=== PATIENT | male | born 1940 | race Caucasian/White ===

== ENCOUNTER → 2016-08-23 | Day surgery (SDC) | payer BC ==
[~2016-08-23] VITALS: Ht 185.4 cm; Wt 82.7 kg
[~2016-08-23] MED LIST: CLOB-65 TOP; CLOT1CRE3 TD; FLUO0.0566 TOP; GFNSR600 PO; IPRA1AER2 INH; LCTX PO; LIDOCAINE HCL 2% 2 ML VIAL (20MG/ML) ONE; LVQ750 PO; NCDT14 TD; NSNN50; PRED20TA2 PO; PROPOFOL IV EMULSION 10 MG/ML 20 ML VIAL IV ONE; TRIAPOW6 TD
--- NOTE | 2016-08-23 15:11 | Endo History and Physical ---
History & Physical Date of Service: Aug 23, 2016. Chief Complaint: Esophageal stenosis Referring Physician: Dr. Jackman History of Present Illness 75 yo CM who presents for EGD secondary to esophageal stenosis. Past Surgical History Hx Cardiac Surgery: No Hx Abdominal Surgery: No Hx Cancer Surgery: No Hx Thoracic Surgery: No Hx Urinary Tract Surgery: No Social History Smoking Status: Current Every Day Smoker Hx Alcohol Use: Yes (WHISKEY 2 TIMES/DAY) Allergies Coded Allergies: No Known Allergies (Verified , 03/31/14) Current Medications Reported Home Medications Medications Dose Route/Sig Max Daily Dose Days Date Category Nicotine 1 Patch Tdsy 14 Patch TD QAM 30 02/03/14 Rx Nasonex (Mometasone Furoate (Nasal)) 120 Sprays/17 Gm Aers 2 Sprays NA BID 02/03/14 Rx Levofloxacin 750 Mg Tab 750 Mg PO DAILY@11 02/03/14 Rx Floranex (Lactobacillus Acidophilus) 1 Tab Tab 1 Tab PO TIDM 10 02/03/14 Rx Combivent Respimat (Ipratropium-Albuterol) 120 Puffs/Inhaler Aero 1 Puffs INH Q6 02/03/14 Rx Mucinex Ext Rel (Guaifenesin) 600 Mg Tabcr 1,200 Mg PO Q12 5 02/03/14 Rx Temovate 0.05% (Clobetasol Propionate) Cr 1 Appln TOP UD 01/31/14 Reported Physical Exam General Appearance: WD/WN, no apparent distress Respiratory/Chest: Auscultation: breath sounds normal Cardiovascular: Heart Auscultation: RRR Abdomen: Bowel Sounds: normal Inspection & Palpation: soft, non-distended, no tenderness, guarding & rebound Assessment and Plan Assessment: 75 yo CM who presents for EGD secondary to esophageal stenosis. Plan: Proceed with EGD.
[2016-08-23 15:12] VITALS: Ht 185.4 cm; Wt 82.7 kg
--- NOTE | 2016-08-23 16:23 | Discharge Instructions ---
Endoscopy Patient Instructions Date / Procedure(s) Performed Aug 23, 2016. EGD Allergy Information Coded Allergies: No Known Allergies (Verified , 08/23/16) Discharge Date / Findings Aug 23, 2016. Schatzki's Ring s/p dilation with passage of endoscope Hiatal hernia Medication Instructions OK to resume all medications today as prescribed Reported Home Medications Medications Dose Route/Sig Max Daily Dose Days Date Category Triamcinolone (Triamcinolone (Bulk)) 1 Pow Pow 1 Appln TD BID 08/23/16 Reported Fluocinonide 0.05 % Chelsea 1 Appln TOP BID 30 08/23/16 Reported Clotrimazole (Clotrimazole Vaginal) 1 % Cre 1 Appln TD 08/23/16 Reported Temovate 0.05% (Clobetasol Propionate) Cr 1 Appln TOP UD 01/31/14 Reported Provider Instructions Activity Restrictions - No exercising or heavy lifting for 24 hours. - Do not drink alcohol the day of the procedure. - Do not drive a car or operate machinery until the day after the procedure. - Do not make any important decisions or sign important papers in 24 hours after the procedure. Following Day: - Return to full activity which may include returning to work/school. Diet Start your diet with liquids and light foods (jello, soup, juice, toast). Then eat your usual diet if not nauseated. Treatment For Common After Affects For mild abdominal pain, bloating, or excessive gas: - Rest - Eat lightly - Lie on right side Follow-Up Information Follow-up with DR. CARLEEN FAJARDO as scheduled Anesthesia Information What You Should Know You have had a procedure that required some medicine to reduce anxiety and discomfort. This treatment is called moderate sedation. After receiving the treatment, you may be sleepy, but you will be able to breathe on your own. The effects of the treatment may last for several hours. Follow these instructions along with Activity/Diet recommendations noted above: * Do NOT do anything where dizziness or clumsiness would be dangerous. * Rest quietly at home today, then you can be up and about tomorrow. * Have a responsible person stay with you the rest of today. * You may have had an I.V. today. If so, you may take the dressing off later today. Recommendations Call your doctor if: * Trouble breathing * Continuous vomiting for more than 24 hours * Temperature above 101 degrees * Severe abdominal pain or bloating * Pain not relieved by pain medicine ordered * There is increased drainage or redness from any incision * A large amount of rectal bleeding greater than 2-3 tablespoons. (If you had a polyp/s removed or have hemorrhoids, a small amount of blood - from the rectum is to be expected.) * You have any unanswered questions or concerns. IN THE EVENT OF A SERIOUS EMERGENCY, GO TO THE NEAREST EMERGENCY ROOM Your discharge instructions were prepared by provider Colin Pierce. Patient Instructions Signature Page Mitch Monreal Patient (or Guardian) Signature/Date: I have read and understand the instructions given to me by my caregivers. Caregiver/RN/Doctor Signature/Date: The above-named patient and/or guardian has received patient instructions on this date. + Original Patient Signature Page (only) stays with chart. Please make copy for patient.
--- NOTE | 2016-08-23 16:28 | GI REPORT ---
Procedure Date: 08/23/2016 4:03 PM Procedure: Upper GI endoscopy Indications: Dysphagia Medicines: Monitored Anesthesia Care Complications: No immediate complications. Estimated Blood Loss: Estimated blood loss: none. Procedure: Pre-Anesthesia Assessment: - Prior to the procedure, a History and Physical was performed, and patient medications and allergies were reviewed. The patient's tolerance of previous anesthesia was also reviewed. The risks and benefits of the procedure and the sedation options and risks were discussed with the patient. All questions were answered, and informed consent was obtained. Prior Anticoagulants: The patient has taken no previous anticoagulant or antiplatelet agents. ASA Grade Assessment: II - A patient with mild systemic disease. After reviewing the risks and benefits, the patient was deemed in satisfactory condition to undergo the procedure. After obtaining informed consent, the endoscope was passed under direct vision. Throughout the procedure, the patient's blood pressure, pulse, and oxygen saturations were monitored continuously. The scope was introduced through the mouth, and advanced to the second part of duodenum. The upper GI endoscopy was accomplished without difficulty. The patient tolerated the procedure well. Findings: A moderate Schatzki ring (acquired) was found at the gastroesophageal junction. A small hiatus hernia was present. The examined duodenum was normal. Impression: - Moderate Schatzki ring. - Small hiatus hernia. - Normal examined duodenum. - No specimens collected. Recommendation: - Resume previous diet. - Continue present medications. - Repeat the upper endoscopy in 3 weeks for retreatment. - Return to primary care physician as previously scheduled. Colin Pierce, 08/23/2016 4:27:38 PM This report has been signed electronically. Note Initiated On: 08/23/2016 4:03 PM
--- NOTE | 2016-08-23 16:44 | Anesthesiology Progress Note ---
Anesthesia Post Op Note Date & Time Aug 23, 2016 at 16:43 Vital Signs Pain Intensity: 0 Vital Signs Past 12 Hours Date Time Temp Pulse Resp B/P Pulse Ox O2 Delivery O2 Flow Rate FiO2 08/23/16 16:29 36.7 77 20 139/99 97 Room Air 08/23/16 15:40 36.7 70 20 129/79 97 Room Air Notes Mental Status: alert / awake / arousable, participated in evaluation Pt Amnestic to Procedure: Yes Nausea / Vomiting: adequately controlled Pain: adequately controlled Airway Patency, RR, SpO2: stable & adequate BP & HR: stable & adequate Hydration State: stable & adequate Anesthetic Complications: no major complications apparent Pt doing well.
[2016-08-23 16:59] VITALS: BP 138/76; PULSE 68; O2SAT 97
== END | disposition home or self-care (01) ==
LOC: C.GI 14:54
PROVIDERS: ATTEND Internal Medicine
DX: K22.2 Esophageal obstruction (principal); K44.9 Diaphragmatic hernia without obstruction or gangrene; F17.210 Nicotine dependence, cigarettes, uncomplicated

== ENCOUNTER → 2016-09-12 | Day surgery (SDC) | payer BC ==
[2016-09-07 08:50] VITALS: BMI 23.0
[~2016-09-12] VITALS: Ht 188 cm; Wt 81.8 kg
[~2016-09-12] MED LIST changes: -GFNSR600 PO; -IPRA1AER2 INH; -LCTX PO; -LIDOCAINE HCL 2% 2 ML VIAL (20MG/ML) ONE; -LVQ750 PO; -NCDT14 TD; -NSNN50; -PROPOFOL IV EMULSION 10 MG/ML 20 ML VIAL IV ONE; +SODIUM CHLORIDE 0.9% 500ML 500 ML IV ONE
[2016-09-12 13:29] VITALS: Ht 188 cm; Wt 81.8 kg
--- NOTE | 2016-09-12 13:37 | Endo History and Physical ---
History & Physical Date of Service: Sep 12, 2016. Chief Complaint: ESOPHAGEAL STENOSIS Referring Physician: DR. CARLEEN FAJARDO History of Present Illness 75 yo CM who presents for EGD secondary to esophageal stenosis. Past Surgical History Hx Cardiac Surgery: No Hx Internal Defibrillator: No Hx Pacemaker: No Hx Abdominal Surgery: No Hx of Implantable Prosthesis: No Hx Post-Op Nausea and Vomiting: No Hx Cancer Surgery: Yes (SKIN CANCER REMOVALS) Hx Thoracic Surgery: No Hx Orthopedic: No Hx Urinary Tract Surgery: Yes (LITHOTRIPSY) Family History None Social History Smoking Status: Former Smoker Hx Substance Use: No Hx Alcohol Use: Yes (1 DRINK/DAY) Allergies Coded Allergies: No Known Allergies (Verified , 09/07/16) Current Medications Reported Home Medications Medications Dose Route/Sig Max Daily Dose Days Date Category Triamcinolone (Triamcinolone (Bulk)) 1 Pow Pow 1 Appln TD BID 08/23/16 Reported Fluocinonide 0.05 % Chelsea 1 Appln TOP BID 30 08/23/16 Reported Clotrimazole (Clotrimazole Vaginal) 1 % Cre 1 Appln TD 08/23/16 Reported Temovate 0.05% (Clobetasol Propionate) Cr 1 Appln TOP UD 01/31/14 Reported Vital Signs Weight (Kilograms): 81.82 Height (Feet): 6 Height (Inches): 2 Physical Exam General Appearance: WD/WN, no apparent distress Respiratory/Chest: Auscultation: breath sounds normal Cardiovascular: Heart Auscultation: RRR Abdomen: Bowel Sounds: normal Inspection & Palpation: soft, non-distended, no tenderness, guarding & rebound Assessment and Plan Assessment: 75 yo CM who presents for EGD secondary to esophageal stenosis. Plan: Proceed with EGD.
[2016-09-12 13:40] VITALS: TEMP 36.6
--- NOTE | 2016-09-12 14:20 | Discharge Instructions ---
Endoscopy Patient Instructions Date / Procedure(s) Performed Sep 12, 2016. EGD Allergy Information Coded Allergies: No Known Allergies (Verified , 09/12/16) Discharge Date / Findings Sep 12, 2016. Esophageal stenosis s/p dilation Hiatal hernia Medication Instructions OK to resume all medications today as prescribed. Reported Home Medications Medications Dose Route/Sig Max Daily Dose Days Date Category Triamcinolone (Triamcinolone (Bulk)) 1 Pow Pow 1 Appln TD BID 08/23/16 Reported Fluocinonide 0.05 % Chelsea 1 Appln TOP BID 30 08/23/16 Reported Clotrimazole (Clotrimazole Vaginal) 1 % Cre 1 Appln TD 08/23/16 Reported Temovate 0.05% (Clobetasol Propionate) Cr 1 Appln TOP UD 01/31/14 Reported Provider Instructions Activity Restrictions - No exercising or heavy lifting for 24 hours. - Do not drink alcohol the day of the procedure. - Do not drive a car or operate machinery until the day after the procedure. - Do not make any important decisions or sign important papers in 24 hours after the procedure. Following Day: - Return to full activity which may include returning to work/school. Diet Start your diet with liquids and light foods (jello, soup, juice, toast). Then eat your usual diet if not nauseated. Treatment For Common After Affects For mild abdominal pain, bloating, or excessive gas: - Rest - Eat lightly - Lie on right side Follow-Up Information Follow-up with DR. CARLEEN FAJARDO as scheduled Anesthesia Information What You Should Know You have had a procedure that required some medicine to reduce anxiety and discomfort. This treatment is called moderate sedation. After receiving the treatment, you may be sleepy, but you will be able to breathe on your own. The effects of the treatment may last for several hours. Follow these instructions along with Activity/Diet recommendations noted above: * Do NOT do anything where dizziness or clumsiness would be dangerous. * Rest quietly at home today, then you can be up and about tomorrow. * Have a responsible person stay with you the rest of today. * You may have had an I.V. today. If so, you may take the dressing off later today. Recommendations Call your doctor if: * Trouble breathing * Continuous vomiting for more than 24 hours * Temperature above 101 degrees * Severe abdominal pain or bloating * Pain not relieved by pain medicine ordered * There is increased drainage or redness from any incision * A large amount of rectal bleeding greater than 2-3 tablespoons. (If you had a polyp/s removed or have hemorrhoids, a small amount of blood - from the rectum is to be expected.) * You have any unanswered questions or concerns. IN THE EVENT OF A SERIOUS EMERGENCY, GO TO THE NEAREST EMERGENCY ROOM Your discharge instructions were prepared by provider Colin Pierce. Patient Instructions Signature Page Mitch Monreal Patient (or Guardian) Signature/Date: I have read and understand the instructions given to me by my caregivers. Caregiver/RN/Doctor Signature/Date: The above-named patient and/or guardian has received patient instructions on this date. + Original Patient Signature Page (only) stays with chart. Please make copy for patient.
[2016-09-12 14:51] VITALS: BP 143/86; PULSE 69; O2SAT 97
--- NOTE | 2016-09-12 15:28 | Anesthesiology Progress Note ---
Anesthesia Post Op Note Date & Time Sep 12, 2016 at 15:28 Vital Signs Pain Intensity: 0 Vital Signs Past 12 Hours Date Time Temp Pulse Resp B/P Pulse Ox O2 Delivery O2 Flow Rate FiO2 09/12/16 14:51 69 18 143/86 97 Room Air 09/12/16 14:36 77 18 132/76 96 Room Air 09/12/16 14:21 76 18 105/62 96 Room Air 09/12/16 13:40 36.6 74 18 150/83 96 Room Air Notes Mental Status: alert / awake / arousable, participated in evaluation Pt Amnestic to Procedure: Yes Nausea / Vomiting: adequately controlled Pain: adequately controlled Airway Patency, RR, SpO2: stable & adequate BP & HR: stable & adequate Hydration State: stable & adequate Anesthetic Complications: no major complications apparent
--- NOTE | 2016-09-18 09:49 | GI REPORT ---
Procedure Date: 09/12/2016 1:59 PM Procedure: Upper GI endoscopy Indications: Dysphagia, For therapy of esophageal stenosis Medicines: Monitored Anesthesia Care Complications: No immediate complications. Estimated Blood Loss: Estimated blood loss: none. Procedure: Pre-Anesthesia Assessment: - Prior to the procedure, a History and Physical was performed, and patient medications and allergies were reviewed. The patient's tolerance of previous anesthesia was also reviewed. The risks and benefits of the procedure and the sedation options and risks were discussed with the patient. All questions were answered, and informed consent was obtained. Prior Anticoagulants: The patient has taken no previous anticoagulant or antiplatelet agents. ASA Grade Assessment: II - A patient with mild systemic disease. After reviewing the risks and benefits, the patient was deemed in satisfactory condition to undergo the procedure. After obtaining informed consent, the endoscope was passed under direct vision. Throughout the procedure, the patient's blood pressure, pulse, and oxygen saturations were monitored continuously. The On-site loaner was introduced through the mouth, and advanced to the second part of duodenum. The upper GI endoscopy was accomplished without difficulty. The patient tolerated the procedure well. Findings: One moderate benign-appearing, intrinsic stenosis was found. This measured 1 cm (inner diameter) x 1 cm (in length) and was traversed. A TTS dilator was passed through the scope. Dilation with a 12-13.5-15 mm balloon (to a maximum balloon size of 13.5 mm) dilator was performed. The dilation site was examined and showed moderate improvement in luminal narrowing. A medium-sized hiatus hernia was present. The examined duodenum was normal. Impression: - Benign-appearing esophageal stenosis. Dilated. - Medium-sized hiatus hernia. - Normal examined duodenum. - No specimens collected. Recommendation: - Resume previous diet. - Continue present medications. - Repeat the upper endoscopy for retreatment in 4 weeks. - Return to GI office as previously scheduled. Colin Pierce, DO 09/18/2016 9:48:35 AM This report has been signed electronically. Note Initiated On: 09/12/2016 1:59 PM I attest to the content of the Intraoperative Record and orders documented therein, exceptions below
== END | disposition home or self-care (01) ==
LOC: C.GI 12:58
PROVIDERS: ATTEND Internal Medicine
DX: K22.2 Esophageal obstruction (principal); K44.9 Diaphragmatic hernia without obstruction or gangrene; Z87.891 Personal history of nicotine dependence; Z98.890 Other specified postprocedural states

== ENCOUNTER → 2016-10-31 | Day surgery (SDC) | payer BC ==
[2016-10-18 14:32] VITALS: Ht 188 cm; Wt 81.8 kg
[~2016-10-31] VITALS: Ht 188 cm; Wt 81.8 kg
[~2016-10-31] MED LIST changes: +LIDOCAINE HCL 2% 2 ML VIAL (20MG/ML) ONE; +PROPOFOL IV EMULSION 10 MG/ML 20 ML VIAL IV ONE
--- NOTE | 2016-10-31 11:45 | Endo History and Physical ---
History & Physical Date of Service: Oct 31, 2016. Chief Complaint: esophageal stenosis Referring Physician: Dr. Orlando Jackman History of Present Illness 76 yo CM who presents for EGD secondary to esophageal stenosis. Past Surgical History Hx Cardiac Surgery: No Hx Internal Defibrillator: No Hx Pacemaker: No Hx Abdominal Surgery: No Hx of Implantable Prosthesis: No Hx Post-Op Nausea and Vomiting: No Hx Cancer Surgery: Yes (SKIN CANCER REMOVALS) Hx Thoracic Surgery: No Hx Orthopedic: No Hx Urinary Tract Surgery: Yes (LITHOTRIPSY) Family History None Social History Smoking Status: Former Smoker Hx Substance Use: No Hx Alcohol Use: Yes (1 DRINK/DAY) Allergies Coded Allergies: No Known Allergies (Verified , 10/18/16) Current Medications Reported Home Medications Medications Dose Route/Sig Max Daily Dose Days Date Category Prednisone Tab (Prednisone) 20 Mg Tab 20 Mg PO DAILY 10/31/16 Reported Fluocinonide 0.05 % Chelsea 1 Appln TOP BID 30 08/23/16 Reported Clotrimazole (Clotrimazole Vaginal) 1 % Cre 1 Appln TD 08/23/16 Reported Temovate 0.05% (Clobetasol Propionate) Cr 1 Appln TOP UD 01/31/14 Reported Vital Signs Weight (Kilograms): 81.82 Height (Feet): 6 Height (Inches): 2 Date Time Temp Pulse Resp B/P Pulse Ox O2 Delivery O2 Flow Rate FiO2 10/31/16 11:15 36.8 61 20 135/82 95 Room Air Physical Exam General Appearance: WD/WN, no apparent distress Respiratory/Chest: Auscultation: breath sounds normal Cardiovascular: Heart Auscultation: RRR Abdomen: Bowel Sounds: normal Inspection & Palpation: soft, non-distended, no tenderness, guarding & rebound Assessment and Plan Assessment: 76 yo CM who presents for EGD secondary to esophageal stenosis. Plan: Proceed with EGD.
--- NOTE | 2016-10-31 12:00 | Discharge Instructions ---
Endoscopy Patient Instructions Date / Procedure(s) Performed Oct 31, 2016. EGD Allergy Information Coded Allergies: No Known Allergies (Verified , 10/18/16) Discharge Date / Findings Oct 31, 2016. Esophageal stenosis s/p dilation to 16.5 mm Medication Instructions OK to resume all medications today as prescribed Reported Home Medications Medications Dose Route/Sig Max Daily Dose Days Date Category Prednisone Tab (Prednisone) 20 Mg Tab 20 Mg PO DAILY 10/31/16 Reported Fluocinonide 0.05 % Chelsea 1 Appln TOP BID 30 08/23/16 Reported Clotrimazole (Clotrimazole Vaginal) 1 % Cre 1 Appln TD 08/23/16 Reported Temovate 0.05% (Clobetasol Propionate) Cr 1 Appln TOP UD 01/31/14 Reported Provider Instructions Activity Restrictions - No exercising or heavy lifting for 24 hours. - Do not drink alcohol the day of the procedure. - Do not drive a car or operate machinery until the day after the procedure. - Do not make any important decisions or sign important papers in 24 hours after the procedure. Following Day: - Return to full activity which may include returning to work/school. Diet Start your diet with liquids and light foods (jello, soup, juice, toast). Then eat your usual diet if not nauseated. Treatment For Common After Affects For mild abdominal pain, bloating, or excessive gas: - Rest - Eat lightly - Lie on right side Follow-Up Information Follow-up with Dr. Orlando Jackman as scheduled Anesthesia Information What You Should Know You have had a procedure that required some medicine to reduce anxiety and discomfort. This treatment is called moderate sedation. After receiving the treatment, you may be sleepy, but you will be able to breathe on your own. The effects of the treatment may last for several hours. Follow these instructions along with Activity/Diet recommendations noted above: * Do NOT do anything where dizziness or clumsiness would be dangerous. * Rest quietly at home today, then you can be up and about tomorrow. * Have a responsible person stay with you the rest of today. * You may have had an I.V. today. If so, you may take the dressing off later today. Recommendations Call your doctor if: * Trouble breathing * Continuous vomiting for more than 24 hours * Temperature above 101 degrees * Severe abdominal pain or bloating * Pain not relieved by pain medicine ordered * There is increased drainage or redness from any incision * A large amount of rectal bleeding greater than 2-3 tablespoons. (If you had a polyp/s removed or have hemorrhoids, a small amount of blood - from the rectum is to be expected.) * You have any unanswered questions or concerns. IN THE EVENT OF A SERIOUS EMERGENCY, GO TO THE NEAREST EMERGENCY ROOM Your discharge instructions were prepared by provider Colin Pierce. Patient Instructions Signature Page Mitch Monreal Patient (or Guardian) Signature/Date: I have read and understand the instructions given to me by my caregivers. Caregiver/RN/Doctor Signature/Date: The above-named patient and/or guardian has received patient instructions on this date. + Original Patient Signature Page (only) stays with chart. Please make copy for patient.
--- NOTE | 2016-10-31 12:09 | GI REPORT ---
Procedure Date: 10/31/2016 11:20 AM Procedure: Upper GI endoscopy Indications: Follow-up of esophageal stenosis Medicines: Monitored Anesthesia Care Complications: No immediate complications. Estimated Blood Loss: Estimated blood loss: none. Procedure: Pre-Anesthesia Assessment: - Prior to the procedure, a History and Physical was performed, and patient medications and allergies were reviewed. The patient's tolerance of previous anesthesia was also reviewed. The risks and benefits of the procedure and the sedation options and risks were discussed with the patient. All questions were answered, and informed consent was obtained. Prior Anticoagulants: The patient has taken no previous anticoagulant or antiplatelet agents. ASA Grade Assessment: III - A patient with severe systemic disease. After reviewing the risks and benefits, the patient was deemed in satisfactory condition to undergo the procedure. After obtaining informed consent, the endoscope was passed under direct vision. Throughout the procedure, the patient's blood pressure, pulse, and oxygen saturations were monitored continuously. The scope was introduced through the mouth, and advanced to the second part of duodenum. The upper GI endoscopy was accomplished without difficulty. The patient tolerated the procedure well. Findings: One moderate benign-appearing, intrinsic stenosis was found. This measured 1.3 cm (inner diameter) x 1 cm (in length) and was traversed. A TTS dilator was passed through the scope. Dilation with a 15-16.5-18 mm balloon (to a maximum balloon size of 16.5 mm) dilator was performed. The dilation site was examined and showed moderate improvement in luminal narrowing. The stomach was normal. The examined duodenum was normal. Impression: - Benign-appearing esophageal stenosis. Dilated. - Normal stomach. - Normal examined duodenum. - No specimens collected. Recommendation: - Resume previous diet. - Continue present medications. - Repeat the upper endoscopy PRN for retreatment. - Return to primary care physician as previously scheduled. Colin Pierce DO 10/31/2016 12:09:12 PM This report has been signed electronically. Note Initiated On: 10/31/2016 11:20 AM I attest to the content of the Intraoperative Record and orders documented therein, exceptions below
--- NOTE | 2016-10-31 12:13 | Anesthesiology Progress Note ---
Anesthesia Post Op Note Date & Time Oct 31, 2016 at 12:13 Vital Signs Pain Intensity: 0 Vital Signs Past 12 Hours Date Time Temp Pulse Resp B/P Pulse Ox O2 Delivery O2 Flow Rate FiO2 10/31/16 12:00 63 16 122/78 93 Room Air 10/31/16 11:15 36.8 61 20 135/82 95 Room Air Notes Mental Status: alert / awake / arousable, participated in evaluation Pt Amnestic to Procedure: Yes Nausea / Vomiting: adequately controlled Pain: adequately controlled Airway Patency, RR, SpO2: stable & adequate BP & HR: stable & adequate Hydration State: stable & adequate Anesthetic Complications: no major complications apparent
[2016-10-31 12:30] VITALS: BP 145/97; PULSE 60; O2SAT 97
== END | disposition home or self-care (01) ==
LOC: C.GI 10:51
PROVIDERS: ATTEND Internal Medicine
DX: K22.2 Esophageal obstruction (principal); Z87.891 Personal history of nicotine dependence

== ENCOUNTER → 2017-03-18 | Outpatient (CLI) | payer BC ==
[~2017-03-18] MED LIST changes: -LIDOCAINE HCL 2% 2 ML VIAL (20MG/ML) ONE; -PROPOFOL IV EMULSION 10 MG/ML 20 ML VIAL IV ONE; -SODIUM CHLORIDE 0.9% 500ML 500 ML IV ONE; -TRIAPOW6 TD
[2017-03-18 10:11] LABS: BASO % 0.3 %; BASO ABS # 0.02 K/uL (0-0.2); COMPLETE YES; EOS % 5.4 %; HEMATOCRIT 49.2 % (42-52); IG% 0.2 %; LYMPH % 25.8 %; LYMPH ABS # 1.62 K/uL (1.2-3.4); MEAN CORPUSCULAR HEMOGLOBIN 30.3 pg (25-34); MEAN CORPUSCULAR HGB CONC 32.9 g/dl (32-36); MONO % 14.3 %; PLATELET COUNT 198 K/uL (130-400); RED BLOOD COUNT 5.35 M/uL (4.7-6.1); WHITE BLOOD COUNT 6.29 K/uL (4.8-10.8)
[2017-03-18 10:31] LABS: ESTIMATED AVERAGE GLUCOSE 120 mg/dl; HA1C FLAG Normal (Normal)
[2017-03-18 10:37] LABS: ALT/SGPT 18 U/L (12-78); AST/SGOT 14 U/L (15-37); BLOOD UREA NITROGEN 14 mg/dl (7-18); BUN/CREATININE RATIO 17.2 (10-20); CALCIUM 9.3 mg/dl (8.5-10.1); CARBON DIOXIDE 24 mmol/L (21-32); CHLORIDE 109 mmol/L (98-107); CREATININE 0.83 mg/dl (0.60-1.40); GLUCOSE 116 mg/dl (70-99); POTASSIUM 4.1 mmol/L (3.5-5.1); SODIUM 140 mmol/L (136-145)
[2017-03-18 10:40] LABS: CHOLESTEROL 219 mg/dl (0-200); CHOLESTEROL/HDL RATIO 5.2; HDL CHOLESTEROL 42 mg/dl; LDL CHOLESTEROL CALCULATED 137 mg/dl; TRIGLYCERIDES 201 mg/dl (0-150); VERY LOW DENSITY LIPOPROT CALC 40 mg/dl
[2017-03-19 14:52] LABS: ALBUMIN 4.1 G/DL (3.8-4.8); GAMMA GLOBULIN 0.9 G/DL (0.8-1.7)
--- NOTE | 2017-04-15 07:28 | CODING QUERY MEDICAL NECESSITY ---
CQSUPPORTING DIAGNOSIS NEEDED A supporting diagnosis is required for the test/procedure performed on this patient in order for us to be reimbursed by the patient's insurance. Please provide a supporting diagnosis for the following test/procedure listed below next to the test name along with your signature. *If there is no additional diagnosis for this patient that would support the following test/procedure please document that below next to the test/procedure. Test(s)/Procedure(s) that require a supporting diagnosis: DOS 03/18/17 GLYCATED HEMOGLOBIN TEST VITAMIN B12 TEST Provider Signature: Date: Thank you Germaine Sahni Health Information Management Once completed, please kindly fax back to [phone] For questions please call [phone]
== END | disposition home or self-care (01) ==
LOC: C.LAB1850 09:17
PROVIDERS: ATTEND Internal Medicine
DX: M21.379 Foot drop, unspecified foot (principal); E55.9 Vitamin D deficiency, unspecified; E78.5 Hyperlipidemia, unspecified; G62.9 Polyneuropathy, unspecified; E88.9 Metabolic disorder, unspecified

== ENCOUNTER 2017-05-20 15:19 | Inpatient (IN) | payer BC, OTHER ==
[~2017-05-20] VITALS: Ht 188 cm; Wt 77.1 kg
[~2017-05-20 15:19] MED LIST changes: -CHOL1CAP67 PO; -RIVA1TAB7 PO
[2017-05-20 16:23] LABS: BASO % 0.2 %; BASO ABS # 0.02 K/uL (0-0.2); COMPLETE YES; HEMATOCRIT 46.2 % (42-52); IG% 0.2 %; LYMPH % 18.9 %; LYMPH ABS # 2.26 K/uL (1.2-3.4); MEAN CELL VOLUME 90.2 fL (80-100); MEAN CORPUSCULAR HEMOGLOBIN 30.3 pg (25-34); MEAN CORPUSCULAR HGB CONC 33.5 g/dl (32-36); MEAN PLATELET VOLUME 11.1 fL (7.4-10.4); MONO % 13.6 %; NEUT % 66.1 %; PLATELET COUNT 253 K/uL (130-400); RED BLOOD COUNT 5.12 M/uL (4.7-6.1); WHITE BLOOD COUNT 11.95 K/uL (4.8-10.8)
[2017-05-20 16:43] LABS: PARTIAL THROMBOPLASTIN RATIO 1.1; PROTHROMBIN TIME (PATIENT) 10.5 SECONDS (9.0-12.0)
[2017-05-20 16:51] LABS: BUN/CREATININE RATIO 21.4 (10-20); CALCIUM 9.2 mg/dl (8.5-10.1); CREATININE 0.86 mg/dl (0.60-1.40); POTASSIUM 4.2 mmol/L (3.5-5.1)
[2017-05-20] MEDS ORDERED: CHOL1CAP67 PO (17:15)
[2017-05-20] MEDS ORDERED: OPTIRAY 320 IV PRN (17:30)
--- NOTE | 2017-05-20 17:41 | DIAGNOSTIC IMAGING REPORT ---
(CHEST FOR PE) ANGIO WITH CT DOSE: 389.85 mGy.cm HISTORY: 76 years-old Male presents with acute atypical chest pain and concern for pulmonary embolus. Extensive deep venous thrombosis of the left lower extremity seen on duplex study of same day. TECHNIQUE: Multiple CTA images of the chest were obtained after the intravenous administration of 80 mL Optiray 320. Coronal and sagittal MIPS were obtained from the axial data set and were submitted for review. A dose lowering technique was utilized adhering to the principles of ALARA. COMPARISON: Chest CT 01/31/2014. FINDINGS: CTA: Heart is normal in size. Minimal nondependent air is seen within the right ventricle and main pulmonary artery, likely iatrogenic from intravenous access. There is reflux of contrast into the IVC and hepatic veins, likely secondary to technique of contrast injection. Coronary arterial calcifications are present. The pulmonary arterial tree is well-opacified to the level of the distal segmental branches. The subsegmental branches are somewhat suboptimally visualized secondary to contrast bolus timing and respiratory motion. Extensive pulmonary emboli are seen, notably on the right involving the distal aspect of the main right pulmonary artery extending into the right upper, middle and lower lobar branches as well as into the segmental and subsegmental branches as seen on image 139 and 151 for example. Emboli are seen within segmental and subsegmental branches of the left lower lobe as seen on image 113 of series 4. No definite evidence of right heart strain. The thoracic aorta is not opacified with contrast. Moderate atrophy chronic plaquing of the thoracic aorta is seen without aneurysm identified. CT CHEST: No dominant thyroid nodule. No pathologic adenopathy identified. No pleural effusion or pneumothorax. Linear subsegmental consolidative opacities and groundglass densities of the lung bases, left greater the right suggest atelectasis. Pleural probable scarring with apparent postsurgical changes of the left lung apex are noted. Calcific granuloma the left upper lobe is present. Moderate bilateral bronchial wall thickening. No large pulmonary infarction or definite suspicious pulmonary nodules identified. Abdominal structures demonstrate no acute abnormality. Colonic diverticulosis noted involving the splenic flexure and transverse colon. Mild bilateral gynecomastia. The bones are mildly demineralized. Posterior disc aspect complex formations are noted at several levels. Multiple remote right-sided rib fractures. IMPRESSION: 1. Extensive bilateral pulmonary emboli, right greater than left involving the distal right main pulmonary artery as well as lobar, segmental and subsegmental branches as above. No definite evidence of right heart strain or pulmonary infarction identified. 2. Moderate bilateral bronchial wall thickening suggests bronchitis. 3. Thoracic aorta is not opacified, however no acute aortic pathology or aneurysm identified. The above report was generated using voice recognition software. It may contain grammatical, syntax or spelling errors. Electronically signed by: Emilio Buckner M.D. 05/20/2017 5:40 PM Dictated Date/Time: 05/20/2017 5:27 PM
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
[2017-05-20] MEDS ORDERED: POLYETHYLENE (MIRALAX) 17 GM PACK PO PRN (18:45)
[2017-05-20] MEDS ORDERED: ACETAMINOPHEN 325 MG TAB PO PRN (18:45)
[2017-05-20] MEDS ORDERED: ONDANSETRON INJ 2 MG/ML 2 ML VIAL IV PRN (18:45)
[2017-05-20] MEDS ORDERED: HEPARIN SOD 5000 UNIT/0.5 ML CARP ONE (19:40)
[2017-05-20] MEDS ORDERED: HEPARIN 25000 UNIT/500 ML D5W ONE (19:40)
[2017-05-20 20:40] VITALS: BP 149/76; PULSE 65; TEMP 36.7; O2SAT 95; Ht 188 cm; Wt 77.1 kg
[2017-05-20] MEDS ORDERED: HEPARIN 25,000 UNIT/500ML D5W 500 ML IV PRN (22:00)
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
[2017-05-20 23:53] VITALS: BP 134/78; PULSE 54; TEMP 36.6; O2SAT 96
[2017-05-21 01:57] LABS: PARTIAL THROMBOPLASTIN RATIO 3.5
[2017-05-21 03:37] VITALS: BP 81/51; PULSE 88; TEMP 37; O2SAT 100
[2017-05-21 07:27] LABS: BASO % 0.4 %; BASO ABS # 0.03 K/uL (0-0.2); COMPLETE YES; EOS % 2.4 %; HEMATOCRIT 44.7 % (42-52); IG% 0.2 %; LYMPH % 26.8 %; LYMPH ABS # 2.25 K/uL (1.2-3.4); MEAN CELL VOLUME 89.2 fL (80-100); MEAN CORPUSCULAR HEMOGLOBIN 29.1 pg (25-34); MEAN CORPUSCULAR HGB CONC 32.7 g/dl (32-36); MEAN PLATELET VOLUME 11.1 fL (7.4-10.4); MONO % 10.7 %; NEUT % 59.5 %; PLATELET COUNT 229 K/uL (130-400); RED BLOOD COUNT 5.01 M/uL (4.7-6.1); WHITE BLOOD COUNT 8.38 K/uL (4.8-10.8)
[2017-05-21 07:36] LABS: PROTHROMBIN TIME (PATIENT) 10.7 SECONDS (9.0-12.0)
[2017-05-21 07:41] VITALS: BP 123/80; PULSE 59; TEMP 36.6; O2SAT 95
[2017-05-21 07:44] LABS: PARTIAL THROMBOPLASTIN RATIO 2.2
[2017-05-21 07:52] LABS: CREATININE 0.89 mg/dl (0.60-1.40)
[2017-05-21 07:53] LABS: CALCIUM 8.4 mg/dl (8.5-10.1); POTASSIUM 4.2 mmol/L (3.5-5.1)
[2017-05-21 07:55] LABS: CHOLESTEROL/HDL RATIO 3.9
[2017-05-21 10:51] VITALS: BP 132/74; PULSE 67; TEMP 36.4; O2SAT 93
[2017-05-21] MEDS ORDERED: RIVA1TAB7 PO (11:23)
--- NOTE | 2017-05-21 11:25 | Discharge Instructions ---
Discharge Instructions Date of Service May 21, 2017. Admission Reason for Admission: Acute Pe And Dvt VTE Date & Time Date of VTE Diagnosis: May 20, 2017 Time of VTE Diagnosis: 14:17 Discharge Goals Goal(s): Decrease discomfort, Improve disease control Activity Recommendations Activity Limitations: resume your previous activity . Instructions / Follow-Up Instructions / Follow-Up Follow up with family physician within one week Medication Instructions: Your condition is typically treated with an anticoagulant. Anticoagulants will thin your blood to help prevent new clots. * You should take her medication exactly as directed. * Never skip a dose. * Never take a double dose. If you miss a dose, take it as soon as you remember. Call your Primary Care doctor if you experience any of the following: * Swelling or Pain in your leg * Sudden, continuous pain deep in a muscle * Pain that worsens when you are active or when you stand still for a long time * Chest Pain * Sudden Shortness of Breath * Rapid or pounding heart beat * Fainting * Dizziness * Cough with blood or bloody sputum * Sweating more than normal * Bruises * Heavy or uncontrolled bleeding * Blood in your urine, stool or vomit * Black or tarry stools Caring for Your Self at Home: * Avoid sitting, standing or lying down for long periods without moving your legs and feet * When traveling by car, stop to get out and move around at least once every 3 hours * On long airplane, train or bus rides, get up and move around when possible * If you can't get up, wiggle your toes and tighten your calves to keep your blood moving Follow Up: It is important for you to keep your follow up appointments with your medical provider. Current Hospital Diet Patient's current hospital diet: Regular Diet Discharge Diet Recommended Diet: Regular Diet Pending Studies Studies pending at discharge: no Laboratory Results Hemoglobin A1c Test 03/18/17 09:21 Range/Units Estimated Average Glucose 120 mg/dl Hemoglobin A1c 5.8 H 4.5-5.6 % Lipid Panel Test 05/21/17 07:15 Range/Units Triglycerides Level 172 H 0-150 mg/dl Cholesterol Level 185 0-200 mg/dl HDL Cholesterol 47 mg/dl Cholesterol/HDL Ratio 3.9 LDL Cholesterol, Calculated 104 mg/dl Medical Emergencies . Who to Call and When: Medical Emergencies: If at any time you feel your situation is an emergency, please call 911 immediately. . Non-Emergent Contact Non-Emergency issues call your: Primary Care Provider . . "Provider Documentation" section prepared by Darshana Bullock. . VTE Core Measure Inpt VTE Proph given/why not?: Other Anticoagulation, SCD's
[2017-05-21] MEDS ORDERED: RIVAROXABAN TAB 15 MG TAB PO ONE (11:45)
[2017-05-21 12:44] VITALS: BP 132/74; PULSE 67; TEMP 36.4; O2SAT 93
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
== END 2017-05-21 13:12 | disposition home or self-care (01) | DRG 299 ==
LOC: C.EDB 15:23 → C.2T 18:42 → ENRESERV 19:23
PROVIDERS: ADMIT Internal Medicine; ATTEND Family Medicine
DX: I82.4Z2 Acute embolism and thrombosis of unspecified deep veins of left distal lower extremity (principal); I26.99 Other pulmonary embolism without acute cor pulmonale; E55.9 Vitamin D deficiency, unspecified; Z86.718 Personal history of other venous thrombosis and embolism; F17.290 Nicotine dependence, other tobacco product, uncomplicated; Z86.711 Personal history of pulmonary embolism

== ENCOUNTER → 2017-05-20 | Outpatient (CLI) | payer BC ==
[~2017-05-20] MED LIST changes: +CHOL1CAP67 PO; +RIVA1TAB7 PO
--- NOTE | 2017-05-20 15:08 | DIAGNOSTIC IMAGING REPORT ---
LEFT LOWER EXTREMITY VENOUS DOPPLER CLINICAL HISTORY: Left leg pain and swelling. COMPARISON STUDY: No previous studies for comparison. TECHNIQUE: Sonography of the deep venous system of the left lower extremity was performed. Compression and augmentation were evaluated. FINDINGS: There is extensive deep venous thrombus within the left lower extremity, including thrombus within the left superficial femoral, popliteal, posterior tibial, anterior tibial and peroneal veins. Thrombus within the popliteal and posterior tibial veins is occlusive. This thrombus is likely acute. IMPRESSION: Extensive deep venous thrombus within the left lower extremity which is likely acute. Electronically signed by: hCaran Morris M.D. 05/20/2017 3:07 PM Dictated Date/Time: 05/20/2017 3:05 PM
== END | disposition home or self-care (01) ==
LOC: C.ULTR 14:24
PROVIDERS: ATTEND Internal Medicine
DX: M79.89 Other specified soft tissue disorders (principal); I82.402 Acute embolism and thrombosis of unspecified deep veins of left lower extremity

== ENCOUNTER → 2017-12-18 | Outpatient (CLI) | payer BC ==
[~2017-12-18] MED LIST changes: +CHOL1CAP67 PO; -CLOB-65 TOP; -CLOT1CRE3 TD; -FLUO0.0566 TOP; -PRED20TA2 PO; +RIVA1TAB7 PO
--- NOTE | 2017-12-18 10:47 | DIAGNOSTIC IMAGING REPORT ---
ULTRASOUND LEFT LOWER EXTREMITY VENOUS CLINICAL HISTORY: Follow-up deep venous thrombosis. COMPARISON STUDY: Left lower extremity venous ultrasound dated 05/20/2017. TECHNIQUE: Real-time, grayscale, and color Doppler sonography of the deep veins of the left lower extremity was performed from the inguinal crease to the calf. Compression and augmentation were utilized. FINDINGS: There is nonocclusive deep venous thrombosis identified within the distal superficial femoral vein, the popliteal vein, and in the calf within the anterior tibial and peroneal veins. The common femoral vein as well as the proximal to mid portions of the superficial femoral vein are patent and normally compressible. The greater saphenous vein and the profunda femoris vein at the junction with the common femoral vein are clear. IMPRESSION: There is age indeterminant nonocclusive deep venous thrombosis seen within the distal superficial femoral vein and extending into the calf. The burden of thrombus has decreased from the 05/20/2017 examination. Electronically signed by: Berlin Flores M.D. 12/18/2017 10:46 AM Dictated Date/Time: 12/18/2017 10:44 AM
== END | disposition home or self-care (01) ==
LOC: C.ULTR 09:40
PROVIDERS: ATTEND Internal Medicine
DX: I82.409 Acute embolism and thrombosis of unspecified deep veins of unspecified lower extremity (principal)

== ENCOUNTER 2022-05-04 23:33 | Inpatient (IN) ==
[2022-05-04] MEDS ORDERED: ALBUT/IPRATROP 3MG/0.5MG NEB 3 ML VIAL INH STA (23:47)
--- NOTE | 2022-05-04 23:50 | Emergency Department Note ---
Impression & Plan Hypoxia ADMIT ED Provider Note HPI: The patient is an 81-year-old male with history of DVT, on Xarelto, presents the emergency department with a chief complaint of cough and shortness of breath that has been worsening throughout the day today. On arrival here to the ED the patient is hypoxic at 89% on room air, he was placed on nasal cannula oxygen with good improvement, on my initial assessment he does display some moderate increased work of breathing, he is coarse bilateral breath sounds with some moderate expiratory wheezing bilaterally. Patient denies any chest pain. He is alert on arrival, he is afebrile on arrival. ROS: -Pulmonary: Cough, shortness of breath *10 point review systems was conducted and is otherwise negative unless stated above *Outpatient medications and allergy history reviewed PE: General: Alert HEENT: Normocephalic, trachea midline Eyes: Extraocular eye movement is intact, no scleral erythema Pulmonary: Coarse bilateral breath sounds with moderate expiratory wheezing bilaterally Cardio: Regular rate and rhythm GI: Abdomen is soft, nontender : No suprapubic tenderness MSK: No evidence of trauma or malformation of the extremities, no edema Skin: No evidence of rash Neuro: Alert, no focal deficits 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 He states his symptoms have been acutely worsening throughout the day today. He does mention that his son recently tested positive for COVID-19. On arrival the patient did have coarse bilateral breath sounds, he was slightly hypoxic, he was placed on nasal cannula oxygen with good improvement. Patient was given a DuoNeb breathing treatment with good improvement in his symptoms. Chest x-ray does not show any obvious evidence of pneumonia, lab work does not show any leukocytosis, no critical electrolyte abnormalities are noted, troponin is negative. Patient denies any chest pain. Patient is stable on nasal cannula oxygen on my reassessment. COVID-19 test is pending at this time but I suspect that his symptoms are viral in nature, he is hypoxic and required supplemental oxygen therefore we will plan for admission for observation tonight. Patient is in agreement to the above plan and he was admitted in stable condition for further care. * CRITICAL CARE TIME: (35) minutes -Stabilization of hypoxia requiring supplemental oxygen to improve oxygen saturations less than 90% on room air, time spent at the bedside, interpretation of diagnostic studies, arrangement of admission Diagnosis: 1. Hypoxia, acute 2. Shortness of breath 3. 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 Hand Family History Mother Pancreatic cancer Other No family history of adverse response to anesthesia Denies family history of Ovarian cancer Prostate cancer Myocardial infarction Breast cancer Colorectal cancer Social History Smoking Status: Current some day smoker Tobacco Type: Cigars packs per day: 2; Cigarettes Per Day: 1-2 SMALL CIGARS PER DAY (advised on policy); Second Hand Exposure: No; Hx Alcohol Use: Yes Alcohol type: hard liquor Alcohol Intake Frequency: 4 or More x per/Week Hx Substance Use: No Preferred Language: Slovak Communication Ability: Effective Visual Impairment: No Limitations Hearing Ability: Normal Credit Clerk Required: No Beliefs That Will Affect Care: None marital status: Current Living Situation: Spouse current occupational status: retired Feels Safe at Home: Yes Childhood Exposure to Second-Hand Smoke: No Dental Care, Regularly: Yes Physical Activity Frequency: Daily Seatbelt Use: always Sunscreen Use: No Assistive Devices: Denture - Lower and Glasses Allergies Allergies Allergy/AdvReac Type Severity Reaction Status Date / Time No Known Allergies Allergy Verified 04/26/22 12:42 Home Meds Home Medications Medication Instructions Recorded Confirmed rivaroxaban 20 mg tablet (Xarelto) 20 mg PO QAM 03/28/22 04/26/22 Previous Rx's Medication Instructions Recorded albuterol sulfate 90 mcg/actuation 1 inh inhalation QID PRN shortness 05/24/21 aerosol inhaler (Ventolin HFA) of breath or wheezing #18 grams pantoprazole 40 mg tablet,delayed 40 mg PO BID #60 tabs 03/29/22 release Results & Data (ED) Vital Signs Vital Signs - 24 hr 05/04/22 23:36 05/04/22 23:45 05/04/22 23:45 Temperature 36.9 C Temperature Source Temporal Artery Scan Pulse Rate 103 H Pulse Rate [Finger] Respiratory Rate 28 H Respiratory Effort / Characteristics Spontaneous Short of Breath SOB on Exertion Respiratory Depth Deep Shallow Respiratory Pattern Regular Blood Pressure 162/85 H Blood Pressure [Right Arm] Blood Pressure Mean 110 Blood Pressure Mean [Right Arm] Pulse Oximetry 89 L 94 Oxygen Delivery Method Room Air Nasal Cannula Oxygen Flow Rate 3 Sepsis Recent Fever Within 48 Hours No Sepsis New/Unexplained Change in Mental Status No Sepsis Action Taken by Nursing No Action Required 05/04/22 23:54 05/05/22 01:30 Temperature Temperature Source Pulse Rate Pulse Rate [Finger] 85 Respiratory Rate 20 Respiratory Effort / Characteristics Respiratory Depth Respiratory Pattern Blood Pressure Blood Pressure [Right Arm] 154/91 H Blood Pressure Mean Blood Pressure Mean [Right Arm] 112 Pulse Oximetry 94 95 Oxygen Delivery Method Nasal Cannula Nasal Cannula Oxygen Flow Rate 2 2 Sepsis Recent Fever Within 48 Hours Sepsis New/Unexplained Change in Mental Status Sepsis Action Taken by Nursing Laboratory Data Result diagrams: 05/05/22 00:00 05/05/22 00:00 Lab Results 05/05/22 05/05/22 05/05/22 Range/Units 00:00 00:00 00:00 WBC 10.51 (4.8-10.8) K/ul RBC 5.10 (4.63-6.08) M/uL Hgb 15.6 (14.0-18.0) g/dl Hct 45.6 (40.1-51.0) % MCV 89.4 (80.0-100.0) fL MCH 30.6 (25.0-34.0) pg MCHC 34.2 (32.0-36.0) g/dL RDW Std Deviation 45.5 (36.4-46.3) fL RDW Coeff of Yuridia 14.0 (11.5-14.5) % Plt Count 199 (130-400) K/uL MPV 11.4 (9.4-12.4) fL Immature Gran % (Auto) 0.3 % Neut % (Auto) 54.9 % Lymph % (Auto) 23.7 % [place] % (Auto) 12.5 % Eos % (Auto) 8.1 % Baso % (Auto) 0.5 % Neut # (Auto) 5.78 (1.4-6.5) K/uL Lymph # (Auto) 2.49 (1.2-3.4) K/uL [place] # (Auto) 1.31 H (0.24-0.82) K/uL Eos # (Auto) 0.85 H (0-0.50) K/uL Baso # (Auto) 0.05 (0-0.2) K/uL Immature Gran # (Auto) 0.03 H (0.00-0.02) K/uL PT (9.0-12.0) Seconds INR (0.9-1.1) APTT (21.0-31.0) Seconds PTT Ratio VBG pH (7.36-7.41) VBG pCO2 (38-50) mmHg VBG pO2 mmHg VBG HCO3 mmol/L VBG O2 Saturation % VBG Base Excess mEq/L Sodium 136 (136-145) mmol/L Potassium 4.0 (3.5-5.1) mmol/L Chloride 101 (98-107) mmol/L Carbon Dioxide 25 (21-32) mmol/L Anion Gap 10 (3-11) BUN 18 (6-23) mg/dl Creatinine 0.89 (0.6-1.4) mg/dl Est Cr Clr Drug Dosing 69.6 ml/min Est GFR ( Amer) 91.6 ml/min Est GFR (Non-Af Amer) 79.1 ml/min BUN/Creatinine Ratio 20.2 H (10-20) Glucose 127 H (70-99(Fasting)) mg/dl Calcium 9.4 (8.5-10.1) mg/dl Total Bilirubin 0.5 (0.2-1.0) mg/dl AST 27 (13-39) U/L ALT 18 (7-52) U/L Alkaline Phosphatase 70 (34-104) U/L Troponin I High Sens 12.0 (0-20) pg/ml B-Natriuretic Peptide 14 (0-100) pg/ml Total Protein 8.0 (6.0-8.3) gm/dl Albumin 4.5 (3.4-5.0) gm/dl Globulin 3.5 (2.5-4.0) gm/dl Albumin/Globulin Ratio 1.3 (0.9-2) 05/05/22 05/05/22 Range/Units 00:00 00:00 WBC (4.8-10.8) K/ul RBC (4.63-6.08) M/uL Hgb (14.0-18.0) g/dl Hct (40.1-51.0) % MCV (80.0-100.0) fL MCH (25.0-34.0) pg MCHC (32.0-36.0) g/dL RDW Std Deviation (36.4-46.3) fL RDW Coeff of Yuridia (11.5-14.5) % Plt Count (130-400) K/uL MPV (9.4-12.4) fL Immature Gran % (Auto) % Neut % (Auto) % Lymph % (Auto) % [place] % (Auto) % Eos % (Auto) % Baso % (Auto) % Neut # (Auto) (1.4-6.5) K/uL Lymph # (Auto) (1.2-3.4) K/uL [place] # (Auto) (0.24-0.82) K/uL Eos # (Auto) (0-0.50) K/uL Baso # (Auto) (0-0.2) K/uL Immature Gran # (Auto) (0.00-0.02) K/uL PT 11.7 (9.0-12.0) Seconds INR 1.1 (0.9-1.1) APTT 32.9 H (21.0-31.0) Seconds PTT Ratio 1.2 VBG pH 7.41 (7.36-7.41) VBG pCO2 45 (38-50) mmHg VBG pO2 46 mmHg VBG HCO3 29 mmol/L VBG O2 Saturation 77.5 % VBG Base Excess 3.2 mEq/L Sodium (136-145) mmol/L Potassium (3.5-5.1) mmol/L Chloride (98-107) mmol/L Carbon Dioxide (21-32) mmol/L Anion Gap (3-11) BUN (6-23) mg/dl Creatinine (0.6-1.4) mg/dl Est Cr Clr Drug Dosing ml/min Est GFR ( Amer) ml/min Est GFR (Non-Af Amer) ml/min BUN/Creatinine Ratio (10-20) Glucose (70-99(Fasting)) mg/dl Calcium (8.5-10.1) mg/dl Total Bilirubin (0.2-1.0) mg/dl AST (13-39) U/L ALT (7-52) U/L Alkaline Phosphatase (34-104) U/L Troponin I High Sens (0-20) pg/ml B-Natriuretic Peptide (0-100) pg/ml Total Protein (6.0-8.3) gm/dl Albumin (3.4-5.0) gm/dl Globulin (2.5-4.0) gm/dl Albumin/Globulin Ratio (0.9-2) Administered Medications Discontinued Medications Albuterol (Albut/Ipratrop 3mg/0.5mg Neb 3 Ml Vial) 3 ml INH NOW STA Stop: 05/04/22 23:48 Last Admin: 05/05/22 00:19 Dose: 3 ml Documented By: YANN Dexamethasone 8 mg/ Syringe 2 mls @ 1 mls/min IV ONE ONE Stop: 05/05/22 00:50 Last Admin: 05/05/22 01:20 Dose: 1 mls/min Documented By: YANN Imaging Data Radiologist's Impression: Chest X-Ray 05/04/22 23:47 XR chest 1V portable HISTORY: 81 years-old Male Dyspnea acute shortness of breath COMPARISON: Chest radiograph 05/24/2021 TECHNIQUE: AP view of the chest FINDINGS: Cardiomediastinal and hilar silhouettes are within normal limits. No pneumotho rax, pleural effusion, airspace consolidation or overt pulmonary edema. Degenerative changes of the shoulders and spine. IMPRESSION: No acute process. ACT 112: Negative or not required by law. The above report was generated using voice recognition software. It may contain grammatical, syntax or spelling errors. Electronically signed by: Ino Buckner M.D. 05/05/2022 12:09 AM Discharge Plan Visit Data Chief Complaint: Shortness of Breath/Dyspnea Stated Complaint: HARD TO BREATHE ED Provider: Tha Sawant Discharge Problem: Hypoxia Patient Disposition: Admitted As Inpatient Forms Stand Alone Forms: [facility] Prescriptions Prescriptions: No Action albuterol sulfate [Ventolin HFA] 90 mcg/actuation HFA aerosol inhaler 1 inh inhalation QID PRN (Reason: shortness of breath or wheezing) Qty: 18 1RF Xarelto 20 mg tablet 20 mg PO QAM Rx Instructions: must administer with a meal/food pantoprazole 40 mg tablet,delayed release (DR/EC) 40 mg PO BID Qty: 60 5RF Referrals Referrals: Orlando Jackman MD [Primary Care Provider] -
--- NOTE | 2022-05-05 00:11 | XRay Report ---
XR chest 1V portable HISTORY: 81 years-old Male Dyspnea acute shortness of breath COMPARISON: Chest radiograph 05/24/2021 TECHNIQUE: AP view of the chest FINDINGS: Cardiomediastinal and hilar silhouettes are within normal limits. No pneumothorax, pleural effusion, airspace consolidation or overt pulmonary edema. Degenerative changes of the shoulders and spine. IMPRESSION: No acute process. ACT 112: Negative or not required by law. The above report was generated using voice recognition software. It may contain grammatical, syntax o r spelling errors. Electronically signed by: Ino Buckner M.D. 05/05/2022 12:09 AM
[2022-05-05 00:15] LABS: Basophils # (auto) 0.05 K/uL (0-0.2); Basophils % (auto) 0.5 %; Eosinophils # (auto) 0.85 K/uL (0-0.50); Eosinophils % (auto) 8.1 %; Hematocrit (blood only) 45.6 % (40.1-51.0); Hemoglobin 15.6 g/dl (14.0-18.0); Immature Granulocytes # (auto) 0.03 K/uL (0.00-0.02); Immature Granulocytes % (auto) 0.3 %; Lymphocytes # (auto) 2.49 K/uL (1.2-3.4); Lymphocytes % (auto) 23.7 %; Mean Corpuscular Hemoglobin 30.6 pg (25.0-34.0); Mean Corpuscular Hgb Conc 34.2 g/dL (32.0-36.0); Mean Corpuscular Volume 89.4 fL (80.0-100.0); Mean Platelet Volume 11.4 fL (9.4-12.4); Monocytes # (auto) 1.31 K/uL (0.24-0.82); Monocytes % (auto) 12.5 %; Neutrophils # (auto) 5.78 K/uL (1.4-6.5); Neutrophils % (auto) 54.9 %; Platelet Count 199 K/uL (130-400); RDW Standard Deviation 45.5 fL (36.4-46.3); White Blood Count 10.51 K/ul (4.8-10.8)
[2022-05-05 00:31] LABS: INR 1.1 (0.9-1.1); Partial Thromboplastin Ratio 1.2; Partial Thromboplastin Time 32.9 Seconds (21.0-31.0); Prothrombin Time 11.7 Seconds (9.0-12.0)
[2022-05-05 00:37] LABS: Base Excess VBG 3.2 mEq/L; HCO3 VBG 29 mmol/L; Oxygen Saturation VBG 77.5 %; PCO2 VBG 45 mmHg (38-50); PO2 VBG 46 mmHg; pH VBG 7.41 (7.36-7.41)
[2022-05-05 00:40] LABS: Albumin Globulin Ratio 1.3 (0.9-2); Albumin Level 4.5 gm/dl (3.4-5.0); BUN Creatinine Ratio 20.2 (10-20); Bilirubin,Total 0.5 mg/dl (0.2-1.0); Calcium 9.4 mg/dl (8.5-10.1); Creatinine Clr Calc Pharmacy 69.6 ml/min; Est GFR (African American) 91.6 ml/min; Est GFR (Non-African American) 79.1 ml/min; Globulin 3.5 gm/dl (2.5-4.0)
[2022-05-05] MEDS ORDERED: dexAMETHasone 8 MG in SYRINGE 0 ML IV ONE (00:49)
--- NOTE | 2022-05-05 01:17 | History & Physical Report ---
Date of Service May 05, 2022 Assessment & Plan (1) Dyspnea: Plan: 81-year-old male with past medical history of GERD, hyperlipidemia, dysphagia (several recent egds w/ esophageal dilation) history of PE on Xarelto who presents with dyspnea x1 day as well as productive cough of thick yellow sputum. - treating as mild COPD exacerbation per cigar use history, yellow sputum, and diffuse high pitched expiratory wheezes. New likely transient O2 requirement, 2L, saturating 92-93% titrate O2 to 90% - considered, but lower suspicion for infectious process (e.g. UTI, has hx of), pneumonia, cardiac, CHF, msk. covid/flu/rsv neg. BNP 14. - considered aspiration w/ dysphagia; cxr w/o acute process (2) COPD exacerbation: Plan: - likely undiagnosed COPD. recommend outpatient PFTs - s/p Decadron 8mg IV. q8h methylpred 40mg IV. pre DM, last a1c 6.1. defer BSG checks for now. - scheduled Duonebs - incentive spirometry and flutter valve - Mucinex - continue tobacco cessation counseling (3) Dysphagia: Plan: - follows GI as outpatient and has had serial EGDs w/ esophageal dilation for presumed benign process. continue home PPItropf (4) History of pulmonary embolism: Plan: - continue home Xarelto - upon discharge, pcp to re-examine if duration appropriate (5) Cough: Plan: - see above Plan FEN/GI: regular diet. no IV fluids anticoag: home Xarelto code: full dispo: med tele History of Present Illness Chief Complaint: dyspnea Primary Care Provider: Orlando Jackman MD 81-year-old male with past medical history of GERD, hyperlipidemia, dysphagia (several recent egds w/ esophageal dilation) history of PE on Xarelto who presents with dyspnea since noon as well as productive cough of thick yellow sputum. He denies fever, chills, or pleuritic chest pain and was otherwise at baseline state of health. No abd pain, urinary symptoms, or diarrhea. He notes improvement in his dysphagia after his recent EGD and esophageal dilation. Patient has had his COVID-vaccine and boosters. He continues to use cigars daily. He has not had prior diagnosis of COPD or PFTs. ED course: IV Decadron 8mg x1. lab review: wbc 10.51. vbg ph 7.41, pco2 45. Cr 0.89. 04/20/22 a1c 6.1 Allergies Allergy/AdvReac Type Severity Reaction Status Date / Time No Known Allergies Allergy Verified 04/26/22 12:42 Home Medications Medication Instructions Recorded Confirmed Type albuterol sulfate 90 mcg/actuation 1 inh inhalation QID PRN shortness 05/24/21 04/26/22 Rx aerosol inhaler (Ventolin HFA) of breath or wheezing #18 grams rivaroxaban 20 mg tablet (Xarelto) 20 mg PO QAM 03/28/22 04/26/22 History pantoprazole 40 mg tablet,delayed 40 mg PO BID #60 tabs 03/29/22 04/26/22 Rx release Past Med/Surg History Medical History Diverticulitis Kidney stone HX Pneumonia HX Pulmonary embolism HX YEARS-ON XARELTO Rash SIRS (systemic inflammatory response syndrome) (01/31/14) Weakness Surgical History History of colon surgery History of colonoscopy History of esophagogastroduodenoscopy (EGD) last 04/06/22 @ [facility] 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 Hand Family History Mother Pancreatic cancer Other No family history of adverse response to anesthesia Denies family history of Ovarian cancer Prostate cancer Myocardial infarction Breast cancer Colorectal cancer Social History Smoking Status: Current every day smoker Tobacco Type: Cigars packs per day: 2; Cigarettes Per Day: 1-2 SMALL CIGARS PER DAY (advised on policy); Second Hand Exposure: No; Hx Alcohol Use: Yes Alcohol type: hard liquor Alcohol Intake Frequency: 4 or More x per/Week Hx Substance Use: No Preferred Language: Slovenian Communication Ability: Effective Visual Impairment: No Limitations Hearing Ability: Normal Certified Family Mediator Required: No Beliefs That Will Affect Care: None marital status: Current Living Situation: Spouse current occupational status: retired Other Information That Helps Us Care for You: No Feels Safe at Home: Yes Safety Concerns: Feels Safe At This Time Childhood Exposure to Second-Hand Smoke: No Dental Care, Regularly: Yes Physical Activity Frequency: Daily Seatbelt Use: always Sunscreen Use: No Assistive Devices: Denture - Lower and Glasses Review of Systems Review of Systems: All systems reviewed & are unremarkable except as noted in HPI & below Physical Exam Physical Exam: General: Grossly A&O. NAD. Cooperative. HEENT: Atraumatic, normocephalic. EOMI Pulm: Diffuse expiratory mid-high pitched wheezes. Softer breath sounds at bases. No crackles. + transmitted upper airway sounds at neck. Cardiac: RRR, -mrg. Radial pulses intact and symmetrical. No LE edema. Abdominal: Nontender, nondistended, soft. Integ: Warm, dry, intact Msk: Moving all extrem. Results & Data Results & Data ([facility]) Vital Signs (Past 12 Hours) Vital Signs Temp Pulse Resp BP Pulse Ox O2 Del Method O2 Flow Rate 05/04/22 23:54 94 Nasal Cannula 2 05/04/22 23:45 94 Nasal Cannula 3 05/04/22 23:36 36.9 C 103 H 28 H 162/85 H 89 L Room Air Laboratory Results Cardiac Enzymes 05/05/22 05/05/22 Range/Units 00:00 00:00 AST 27 (13-39) U/L Troponin I High Sens 12.0 (0-20) pg/ml B-Natriuretic Peptide 14 (0-100) pg/ml Coagulation 05/05/22 05/05/22 Range/Units 00:00 00:00 PT 11.7 (9.0-12.0) Seconds APTT 32.9 H (21.0-31.0) Seconds B-Natriuretic Peptide 14 (0-100) pg/ml CBC 05/05/22 Range/Units 00:00 WBC 10.51 (4.8-10.8) K/ul RBC 5.10 (4.63-6.08) M/uL Hgb 15.6 (14.0-18.0) g/dl Hct 45.6 (40.1-51.0) % Plt Count 199 (130-400) K/uL Neut # (Auto) 5.78 (1.4-6.5) K/uL Lymph # (Auto) 2.49 (1.2-3.4) K/uL Page # (Auto) 1.31 H (0.24-0.82) K/uL Eos # (Auto) 0.85 H (0-0.50) K/uL Baso # (Auto) 0.05 (0-0.2) K/uL Comprehensive Metabolic Panel 05/05/22 Range/Units 00:00 Sodium 136 (136-145) mmol/L Potassium 4.0 (3.5-5.1) mmol/L Chloride 101 (98-107) mmol/L Carbon Dioxide 25 (21-32) mmol/L BUN 18 (6-23) mg/dl Creatinine 0.89 (0.6-1.4) mg/dl Glucose 127 H (70-99(Fasting)) mg/dl Calcium 9.4 (8.5-10.1) mg/dl AST 27 (13-39) U/L ALT 18 (7-52) U/L Alkaline Phosphatase 70 (34-104) U/L Total Protein 8.0 (6.0-8.3) gm/dl Albumin 4.5 (3.4-5.0) gm/dl Intake and Output 05/04/22 05/04/22 05/05/22 14:59 22:59 06:59 Other: Weight 78.2 kg Weight Measurement Method Chair Scale Patient Weight 05/05/22 06:59 Weight 78.2 kg Diagnostic Findings Chest X-Ray 05/04/22 23:47 XR chest 1V portable HISTORY: 81 years-old Male Dyspnea acute shortness of breath COMPARISON: Chest radiograph 05/24/2021 TECHNIQUE: AP view of the chest FINDINGS: Cardiomediastinal and hilar silhouettes are within normal limits. No pneumothorax, pleural effusion, airspace consolidation or overt pulmonary edema. Degenerative changes of the shoulders and spine. IMPRESSION: No acute process. ACT 112: Negative or not required by law. The above report was generated using voice recognition software. It may contain grammatical, syntax or spelling errors. Electronically signed by: Ino Buckner M.D. 05/05/2022 12:09 AM ECG Additional Comments: - ecg sinus 95, poor quality, with artifact Code Status & VTE Plan Code Status full VTE Prophylaxis Plan VTE Prophylaxis will be ordered: Yes Supervising Physician Co-Signing Physician Notes Attending addendum: I have physically seen this patient, have supervised the medical residents activities, and agree with the H&P unless as otherwise noted. Assessment and Plan: COPD exacerbation- Given a DuoNeb and dexamethasone 8 mg IV by the ED Placed on methylprednisolone 40 mg IV every 8 hours Duonebs every 4 hours while awake and every 2 hours when necessary. Incentive spirometry with flutter valve Guaifenesin extended release 12 mg p.o. twice daily Tobacco cessation counseling Nasal cannula oxygen, titrate to keep pulse ox around 92% History of PE- Continue Xarelto Dysphagia- History of esophageal dilatations for was thought to be a benign process Continue pantoprazole 40 mg p.o. twice daily Tobacco cessation again would be of value Remaining orders and notations as noted Resident Activity Tracking Resident Involvement: Resident Care Provided Care Provided: Adult Hospital Medicine
[2022-05-05 02:06] LABS: Influenza A virus by PCR Negative (Neg); Influenza B virus by PCR Negative (Neg); RSV by PCR Negative (Neg); SARS CoV2 RNA(COVID-19) InHosp NEGATIVE (Negative)
[2022-05-05] MEDS ORDERED: AZITHROMYCIN 500 MG in DEXTROSE 5% 250 ML IV STA (03:39)
[2022-05-05] MEDS ORDERED: ONDANSETRON INJ 2 MG/ML 2 ML VIAL IV PRN (04:03)
[2022-05-05] MEDS ORDERED: POLYETHYLENE (MIRALAX) 17 GM PACK PO PRN (04:03)
[2022-05-05] MEDS ORDERED: ACETAMINOPHEN 325 MG TAB PO PRN (04:03)
[2022-05-05 04:12] LABS: Appearance Urine Turbid (Clear); Bilirubin Urine Negative (Negative); Blood Urine 3+ (Negative); Color Urine Amber; Glucose Urine UA Negative (Negative); Ketones Urine Trace (Negative); Leukocyte Esterase Urine 3+ (Negative); Nitrite Urine Positive (Negative); Protein Urine 1+ (Negative); Urobilinogen Urine Negative (Negative); pH Urine 6.5 (4.5-7.5)
[2022-05-05] MEDS ORDERED: PNEUMOCOCCAL POLYSACCHARIDES 25 MCG/0.5 ML VIAL/SYR IM ONE (04:44)
[2022-05-05 05:16] LABS: RBC Urine >30 /hpf (0-4); WBC Urine >30 /hpf (0-5)
[2022-05-05 05:17] LABS: Bacteria Urine 2+ (Negative); Epithelial Cell Urine >30 /lpf (0-5)
[2022-05-05] MEDS ORDERED: ALBUT/IPRATROP 3MG/0.5MG NEB 3 ML VIAL NEB PRN (05:21)
[2022-05-05] MEDS: methylPREDNISolone 40 MG in SYRINGE 0 ML IV SCH ×3 (05:25→21:12)
[2022-05-05] MEDS: ALBUT/IPRATROP 3MG/0.5MG NEB 3 ML VIAL NEB SCH ×5 (05:40→19:24)
--- NOTE | 2022-05-05 07:26 | Electrocardiogram Report ---
Test Reason : Blood Pressure : / mmHG Vent. Rate : 095 BPM Atrial Rate : 095 BPM P-R Int : 156 ms QRS Dur : 080 ms QT Int : 364 ms P-R-T Axes : 076 -46 104 degrees QTc Int : 457 ms Poor data quality, interpretation may be adversely affected Normal sinus rhythm Left axis deviation Nonspecific ST and T wave abnormality Abnormal ECG When compared with ECG of 20-MAY-2017 20:00, No significant change was found Confirmed by Luciano Alexis ([id number]) on 05/05/2022 7:26:26 AM Referred By: REFERRED SELF Confirmed By:Ralf Alexis
[2022-05-05] MEDS: guaiFENesin 600 MG TABCR PO SCH ×2 (08:29→20:16)
[2022-05-05] MEDS: PANTOprazole 40 MG TAB PO SCH ×2 (08:30→20:15)
--- NOTE | 2022-05-05 08:39 | Hospitalist Progress Note ---
Date of Service May 05, 2022 Assessment & Plan (1) Dyspnea: Plan: 81-year-old male with past medical history of GERD, hyperlipidemia, dysphagia (several recent egds w/ esophageal dilation) history of PE on Xarelto who presents with dyspnea x1 day as well as productive cough of thick yellow sputum. Dyspnea/COPD exacerbation -Patient is a longtime cigar smoker. Afebrile, with increased sputum production, shortness of breath. CXR negative for acute process. Likely undiagnosed COPD (vs pneumonia, pneumonitis) -S/p Decadron IV x1 in ED. * IV azithromycin 250 mg every 24 hours * IV methylprednisolone 40 mg every 8 hours * DuoNeb scheduled every 6 hours * Incentive spirometry, flutter valve * Wean oxygen as permissible * Mucinex as needed for cough * Tobacco cessation counseling * Recommend outpatient PFTs at discharge * Pneumovax-23 vaccine x1 Dysphagia -Follows GI outpatient. Previously undergone multiple serial EGDs with esophageal dilation (presumed benign process). * Home pantoprazole 40 mg p.o. twice daily History of PE: Continue home Xarelto. Suggest PCP follow-up for reevaluation of anticoagulation course length. Code: Full code Dispo: Med-Surg with telemetry FEN/GI: Regular DVT Prophylaxis: Home Xarelto (2) COPD exacerbation: (3) Dysphagia: (4) History of pulmonary embolism: (5) Cough: Plan FEN/GI: regular diet. no IV fluids anticoag: home Xarelto code: full dispo: med tele Admission and Anticipated Discharge Date Admission Date: May 05, 2022 Supervising Physician Co-Signing Physician Notes I personally examined the patient and verified all puckett points of history and exam, discussed case, and agree with decision making with Dr Toro. Breathing feeling better than yesterday. Still 89 to 90% on room air. Is only smoking about 1 cigarette a day, thinks he should probably just quit. Has never had a formal diagnosis of COPD. Vitals noted, in general he is awake and alert pleasant no distress. HEENT normocephalic atraumatic mucous membranes moist. No conversational dyspnea no accessory muscle use good effort. 89 to 90% on room air by my check. No focal neurodeficits. Skin without rashes pallor or icterus. Neuro without focal deficits. Cough/hypoxiapresumed COPD exacerbationfor now manage as such. Outpatient PFTs in about a month. Continue azithromycin and steroids, inhalers. Hopefully home in the next day or so. anticoagulated for prior PE Subjective Per nursing note, patient desaturated to 89% on room air. Subsequently improved to 95% on 2 L nasal cannula. Currently saturating at 91% on 2 L nasal cannula. Patient feels much better. Does not recall desaturation episode as he is asleep. He has no shortness of breath at this time. He wants to know when he can go home. Review of Systems Review of Systems: All systems reviewed & are unremarkable except as noted in HPI & below Physical Exam Physical Exam: General: Well-appearing, alert, interactive, and in no acute distress. HEENT: Normocephalic, atraumatic. EOM intact. Good conjugate gaze. Nares patent. Moist mucosal membranes. Neck: Supple. No lymphadenopathy. Normal ROM. CV: Regular rate and rhythm. Normal S1 and S2. No murmurs gallops or rubs. Respiratory: Normal respiratory effort. Faint bibasilar (atelectatic) crackles. No rhonchi, or wheezes heard. Abdomen: Soft, nondistended abdomen. No bruits heard on auscultation. No tenderness to deep palpation. Extremities: Capillary refill <2 sec. 2+ dp equal bilaterally. No pedal edema. Neuro: Alert and oriented x3. Skin: Clean, dry, and intact. No rashes, bruises, or erythema. Results & Data Results & Data ([facility]) Vital Signs (Past 12 Hours) Vital Signs Temp Pulse Pulse Resp BP BP BP 05/05/22 07:57 36.4 C L 68 18 116/74 05/05/22 07:20 90 18 05/05/22 07:00 84 05/05/22 05:40 90 24 05/05/22 04:10 84 05/05/22 03:55 05/05/22 03:55 36.4 C L 87 20 163/88 H 05/05/22 03:22 64 16 144/98 H 05/05/22 01:30 85 20 154/91 H 05/04/22 23:54 05/04/22 23:45 05/04/22 23:36 36.9 C 103 H 28 H 162/85 H Pulse Ox O2 Del Method O2 Flow Rate 05/05/22 07:57 95 Room Air 05/05/22 07:20 95 Nasal Cannula 2 05/05/22 07:00 05/05/22 05:40 92 Nasal Cannula 2 05/05/22 04:10 05/05/22 03:55 Nasal Cannula 2 05/05/22 03:55 91 Nasal Cannula 2 05/05/22 03:22 94 Nasal Cannula 2 05/05/22 01:30 95 Nasal Cannula 2 05/04/22 23:54 94 Nasal Cannula 2 05/04/22 23:45 94 Nasal Cannula 3 05/04/22 23:36 89 L Room Air Resident Activity Tracking Resident Involvement: Resident Care Provided Care Provided: Adult Hospital Medicine
[2022-05-05] MEDS ORDERED: Nursing to Pharmacy Communication SCH (15:15)
[2022-05-05] MEDS: RIVAROXABAN 20 MG TAB PO SCH (15:55)
--- NOTE | 2022-05-05 18:59 | Billing Data ---
Date of Service May 05, 2022 Coding Level of Care Code 20985 Initial Inpt Care Lvl 3
[2022-05-06] MEDS: methylPREDNISolone 40 MG in SYRINGE 0 ML IV SCH ×3 (05:49→21:15)
[2022-05-06] MEDS: ALBUT/IPRATROP 3MG/0.5MG NEB 3 ML VIAL NEB SCH ×4 (07:23→19:48)
[2022-05-06 07:51] LABS: Basophils # (auto) 0.01 K/uL (0-0.2); Basophils % (auto) 0.1 %; Hematocrit (blood only) 39.3 % (40.1-51.0); Hemoglobin 13.8 g/dl (14.0-18.0); Immature Granulocytes # (auto) 0.19 K/uL (0.00-0.02); Lymphocytes % (auto) 7.8 %; Mean Corpuscular Hemoglobin 30.5 pg (25.0-34.0); Mean Corpuscular Hgb Conc 35.1 g/dL (32.0-36.0); Mean Corpuscular Volume 86.9 fL (80.0-100.0); Mean Platelet Volume 11.7 fL (9.4-12.4); Monocytes # (auto) 1.05 K/uL (0.24-0.82); Monocytes % (auto) 5.5 %; Neutrophils # (auto) 16.48 K/uL (1.4-6.5); Neutrophils % (auto) 85.6 %; Platelet Count 193 K/uL (130-400); RDW Coefficient of Variation 14.2 % (11.5-14.5); RDW Standard Deviation 45.3 fL (36.4-46.3); Red Blood Count 4.52 M/uL (4.63-6.08); White Blood Count 19.23 K/ul (4.8-10.8)
[2022-05-06] MEDS: guaiFENesin 600 MG TABCR PO SCH ×2 (07:52→20:15)
[2022-05-06] MEDS: PANTOprazole 40 MG TAB PO SCH ×2 (07:52→20:15)
[2022-05-06] MEDS ORDERED: PNEUMOCOCCAL POLYSACCHARIDES 25 MCG/0.5 ML VIAL/SYR IM ONE (09:00)
[2022-05-06] MEDS ORDERED: AZITHROMYCIN 250 MG in DEXTROSE 5% 250 ML IV SCH (09:00)
[2022-05-06] MEDS ORDERED: cefTRIAXone SODIUM 2,000 MG in DEXTROSE 5% 50 ML IV SCH (09:00)
[2022-05-06] MEDS ORDERED: Nursing to Pharmacy Communication SCH (12:00)
--- NOTE | 2022-05-06 13:51 | Hospitalist Progress Note ---
Date of Service May 06, 2022 Assessment & Plan (1) Dyspnea: Plan: 81-year-old male with past medical history of GERD, hyperlipidemia, dysphagia (several recent egds w/ esophageal dilation) history of PE on Xarelto who presents with dyspnea x1 day as well as productive cough of thick yellow sputum. Dyspnea/COPD exacerbation -Patient is a longtime cigar smoker. Afebrile, with increased sputum production, shortness of breath. CXR negative for acute process. Likely undiagnosed COPD (vs pneumonia, pneumonitis) -S/p Decadron IV x1 in ED. -Received Pneumovax 23 vaccine -Desaturated again to 87% while ambulating this afternoon. Patient amenable to staying additional night until tomorrow. * IV azithromycin 250 mg every 24 hours * IV methylprednisolone 40 mg every 8 hours * DuoNeb scheduled every 6 hours * Incentive spirometry, flutter valve * Wean oxygen as permissible * Mucinex as needed for cough * Tobacco cessation counseling * 2 step ordered for tomorrow. * Recommend outpatient PFTs at discharge Dysphagia -Follows GI outpatient. Previously undergone multiple serial EGDs with esophageal dilation (presumed benign process). * Home pantoprazole 40 mg p.o. twice daily History of PE: Continue home Xarelto. Suggest PCP follow-up for reevaluation of anticoagulation course length. Code: Full code Dispo: Med-Surg with telemetry FEN/GI: Regular DVT Prophylaxis: Home Xarelto (2) COPD exacerbation: (3) Dysphagia: (4) History of pulmonary embolism: (5) Cough: Admission and Anticipated Discharge Date Admission Date: May 05, 2022 Supervising Physician Co-Signing Physician Notes I personally examined the patient and verified all puckett points of history and exam, discussed case, and agree with decision making with Dr Toro. Breathing feeling better overall. Does not quite feel up to going homebut too much dyspnea on exertion and his is somewhat sick. Vitals noted, in general he is awake and alert pleasant no distress. HEENT normocephalic atraumatic mucous membranes moist. 90% on room airwe walk a lap around the hallway fairly briskly, he has a degree of hyperventilation/very mild but obvious dyspnea and it takes him a little while to recoverduring that time his pulse ox is 87% although it does fairly quickly recovered to 90. His lungs are coarse with faint wheeze Cough/hypoxiapresumed COPD exacerbationfor now manage as such. Outpatient PFTs in about a month. Continue azithromycin and steroids, inhalers. Hopefully home in the next day or so. Desaturation and dyspnea on exertion precluding safe discharge today anticoagulated for prior PE Subjective No acute events overnight. He has no subjective complaints this morning. Patient denies shortness of breath, dyspnea on exertion, dysuria, abdominal pain, or nausea. Per physical therapy, patient desaturated briefly to 89% on room air while ambulating, then rebounded to 91%. Review of Systems Review of Systems: All systems reviewed & are unremarkable except as noted in HPI & below Physical Exam Physical Exam: General: Well-appearing, alert, interactive, and in no acute distress. HEENT: Normocephalic, atraumatic. EOM intact. Good conjugate gaze. Nares patent. Moist mucosal membranes. Neck: Supple. No lymphadenopathy. Normal ROM. CV: Regular rate and rhythm. Normal S1 and S2. No murmurs gallops or rubs. Respiratory: Normal respiratory effort. Faint bibasilar (atelectatic) crackles. No rhonchi, or wheezes heard. Abdomen: Soft, nondistended abdomen. No bruits heard on auscultation. No tenderness to deep palpation. Extremities: Capillary refill <2 sec. 2+ dp equal bilaterally. No pedal edema. Neuro: Alert and oriented x3. Skin: Clean, dry, and intact. No rashes, bruises, or erythema. Results & Data Results & Data ([facility]) Vital Signs (Past 12 Hours) Vital Signs Temp Pulse Pulse Resp BP BP Pulse Ox 05/06/22 12:32 05/06/22 07:55 05/06/22 11:03 36.2 C L 99 H 16 114/70 91 05/06/22 10:26 79 18 93 05/06/22 06:12 70 05/06/22 07:00 05/06/22 07:23 74 18 90 05/06/22 07:53 36.4 C L 78 18 98/56 L 91 05/06/22 04:27 36.4 C L 76 20 106/67 90 Pulse Ox O2 Del Method O2 Flow Rate O2 Flow Rate 05/06/22 12:32 89 L 0 05/06/22 07:55 Room Air 05/06/22 11:03 Nasal Cannula 2 05/06/22 10:26 Nasal Cannula 2 05/06/22 06:12 05/06/22 07:00 Room Air 05/06/22 07:23 Room Air 05/06/22 07:53 Room Air 05/06/22 04:27 Room Air Resident Activity Tracking Resident Involvement: Resident Care Provided Care Provided: Adult Hospital Medicine
[2022-05-06] MEDS: RIVAROXABAN 20 MG TAB PO SCH (16:46)
--- NOTE | 2022-05-06 18:52 | Billing Data ---
Date of Service May 06, 2022 Coding Level of Care Code 46250 Subseq Hosp Care Lvl 3
[2022-05-07] MEDS: methylPREDNISolone 40 MG in SYRINGE 0 ML IV SCH ×2 (06:01→13:04)
[2022-05-07] MEDS: ALBUT/IPRATROP 3MG/0.5MG NEB 3 ML VIAL NEB SCH ×2 (07:31→11:18)
[2022-05-07 07:58] LABS: Basophils # (auto) 0.02 K/uL (0-0.2); Basophils % (auto) 0.1 %; Hematocrit (blood only) 39.3 % (40.1-51.0); Hemoglobin 13.6 g/dl (14.0-18.0); Immature Granulocytes # (auto) 0.16 K/uL (0.00-0.02); Immature Granulocytes % (auto) 0.8 %; Lymphocytes # (auto) 1.57 K/uL (1.2-3.4); Lymphocytes % (auto) 8.1 %; Mean Corpuscular Hemoglobin 30.2 pg (25.0-34.0); Mean Corpuscular Hgb Conc 34.6 g/dL (32.0-36.0); Mean Corpuscular Volume 87.3 fL (80.0-100.0); Mean Platelet Volume 11.5 fL (9.4-12.4); Monocytes # (auto) 1.02 K/uL (0.24-0.82); Monocytes % (auto) 5.2 %; Neutrophils # (auto) 16.66 K/uL (1.4-6.5); Neutrophils % (auto) 85.8 %; Platelet Count 207 K/uL (130-400); RDW Coefficient of Variation 14.4 % (11.5-14.5); RDW Standard Deviation 46.5 fL (36.4-46.3); White Blood Count 19.43 K/ul (4.8-10.8)
[2022-05-07] MEDS: PANTOprazole 40 MG TAB PO SCH (08:07)
[2022-05-07] MEDS: guaiFENesin 600 MG TABCR PO SCH (08:07)
[2022-05-07 08:22] LABS: BUN Creatinine Ratio 26.7 (10-20); Calcium 8.8 mg/dl (8.5-10.1); Creatinine Clr Calc Pharmacy 52.1 ml/min; Est GFR (African American) 67.1 ml/min; Est GFR (Non-African American) 57.9 ml/min; Potassium 4.5 mmol/L (3.5-5.1)
[2022-05-07] MEDS ORDERED: AZITHROMYCIN 250 MG in DEXTROSE 5% 250 ML IV SCH (09:00)
--- NOTE | 2022-05-07 17:05 | Discharge Summary ---
Date of Service May 07, 2022 Admission HPI Per Admitting Provider 81-year-old male with past medical history of GERD, hyperlipidemia, dysphagia (several recent egds w/ esophageal dilation) history of PE on Xarelto who presents with dyspnea since noon as well as productive cough of thick yellow sputum. He denies fever, chills, or pleuritic chest pain and was otherwise at baseline state of health. No abd pain, urinary symptoms, or diarrhea. He notes improvement in his dysphagia after his recent EGD and esophageal dilation. Patient has had his COVID-vaccine and boosters. He continues to use cigars daily. He has not had prior diagnosis of COPD or PFTs. ED course: IV Decadron 8mg x1. lab review: wbc 10.51. vbg ph 7.41, pco2 45. Cr 0.89. 04/20/22 a1c 6.1 Admission Exam Per Admitting Provider General: Grossly A&O. NAD. Cooperative. HEENT: Atraumatic, normocephalic. EOMI Pulm: Diffuse expiratory mid-high pitched wheezes. Softer breath sounds at bases. No crackles. + transmitted upper airway sounds at neck. Cardiac: RRR, -mrg. Radial pulses intact and symmetrical. No LE edema. Abdominal: Nontender, nondistended, soft. Integ: Warm, dry, intact Msk: Moving all extrem. Principal Diagnosis Acute respiratory failure with hypoxia Discharge Exam General: Well-appearing, alert, interactive, and in no acute distress. HEENT: Normocephalic, atraumatic. EOM intact. Good conjugate gaze. Nares patent. Moist mucosal membranes. Neck: Supple. No lymphadenopathy. Normal ROM. CV: Regular rate and rhythm. Normal S1 and S2. No murmurs gallops or rubs. Respiratory: Normal respiratory effort. Faint bibasilar (atelectatic) crackles. No rhonchi, or wheezes heard. Abdomen: Soft, nondistended abdomen. No bruits heard on auscultation. No tenderness to deep palpation. Extremities: Capillary refill <2 sec. 2+ dp equal bilaterally. No pedal edema. Neuro: Alert and oriented x3. Skin: Clean, dry, and intact. No rashes, bruises, or erythema. Discharge Data Allergies Allergy/AdvReac Type Severity Reaction Status Date / Time No Known Allergies Allergy Verified 04/26/22 12:42 Consultations 05/05/22 01:18 ED Decision to Admit Stat Hospital Course (1) Dyspnea: 81-year-old male with past medical history of GERD, hyperlipidemia, dysphagia (several recent egds w/ esophageal dilation) history of PE on Xarelto who presents with dyspnea x1 day as well as productive cough of thick yellow sputum. Dyspnea/COPD exacerbation -Patient is a longtime cigar smoker. Afebrile, with increased sputum production, shortness of breath. CXR negative for acute process. Likely undiagnosed COPD (vs pneumonia, pneumonitis) -S/p Decadron IV x1 in ED. -Received Pneumovax 23 vaccine while on admission. -Desaturated again to 87% while ambulating this afternoon. Patient amenable to staying additional night until tomorrow. * IV azithromycin 250 mg every 24 hours * IV methylprednisolone 40 mg every 8 hours * DuoNeb scheduled every 6 hours * Incentive spirometry, flutter valve * Mucinex as needed for cough * Tobacco cessation counseling * 2 step orderedno home oxygen requirement, per respiratory therapy. * Recommend outpatient PFTs at discharge to assess whether patient's hospitalization for hypoxia represents initial presentation of COPD vs acute bronchitis. Dysphagia -Follows GI outpatient. Previously undergone multiple serial EGDs with esophageal dilation (presumed benign process). * Home pantoprazole 40 mg p.o. twice daily History of PE: Continue home Xarelto. Suggest PCP follow-up for reevaluation of anticoagulation course length. (2) COPD exacerbation: (3) Dysphagia: (4) History of pulmonary embolism: (5) Cough: Total Time Total Time Spent Total Time Spent (In Minutes): 20 Discharge Plan Discharge Items Patient Disposition: Home - Self-Care Reason For Visit: DYSPNEA Discharge Diagnosis: Dyspnea, COPD exacerbation Activity: Per Instructions section Non-emergency contact: Primary Care Provider Call non-emergency contact if: you have any medication questions, your symptoms worsen and your pain is not controlled Follow-up/Referrals: Orlando Jackman MD [Primary Care Provider] - 05/16/22 11:00 am Diet: Regular Addtl Attending Provider Instructions: Dear Mr. Ceja, You were brought to the emergency room because of aggressively worsening shortness of breath. You were evaluated in the emergency room and were admitted for suspected bronchitis. You were started on some IV and oral medications and you subsequently began to improve. Your oxygen saturation, or a measure of the amount of oxygen in your blood, was a little low, so we supplemented with oxygen and, prior to discharge, evaluated with other respiratory therapy team to ensure that you were ready to be safely discharged today. We made no changes to your medications. Continue take your medications as directed unless otherwise instructed by your primary care physician. You have an appointment with your primary care physician, Dr. Jackman, on May 16, 2022, at 11 AM. If you are unable to make that appointment, you should contact his clinic at [phone]. During this appointment, you should have a discussion with Dr. Jackman about possibly being evaluated for chronic obstructive pulmonary disease, or COPD. If he agrees that you should be evaluated, you will be ordered a PFT, or pulmonary function test. If you experience the following symptoms, please contact your primary care physician. If you are unable to contact them, or the symptoms acutely worsen, you should go to the emergency room. * Sudden shortness of breath worsens with activity * Sharp, or crushing chest pain that radiates to 10 neck, shoulder, arm, or jaw * Sudden dizziness, or lightheadedness, or if you wake up after having lost consciousness It was our pleasure caring for you here at [facility]. If you have any questions or concerns about your stay here, please call us at [phone]. Pending Studies at Discharge: No Stand-Alone Forms: My [facility], Smoking Cessation Medications and DC Order Prescriptions: Continued albuterol sulfate [Ventolin HFA] 90 mcg/actuation HFA aerosol inhaler 1 inh inhalation QID PRN (Reason: shortness of breath or wheezing) Qty: 18 1RF Xarelto 20 mg tablet 20 mg PO QAM Rx Instructions: must administer with a meal/food pantoprazole 40 mg tablet,delayed release (DR/EC) 40 mg PO BID Qty: 60 5RF Discharge Orders: Discharge Order (Routine); Ordered 05/07/22 Ordered By: [place]/Other Patient Handouts: Asthma and COPD Admission Data Admit Date/Time: 05/05/22 02:33 Attending Provider: Orlando Ramires Admit Provider: Bryce Dale Primary Care Provider: Orlando Jackman Other Providers: Honorio Thao Other Interventions: Discharge Summary Assessment (RN) Last Done: 05/07/22 13:18 Supervising Physician Co-Signing Physician Notes I personally examined the patient and verified all puckett points of history and exam, discussed case, and agree with decision making with Dr Toro. Total time spent reviewing patient information and examining/interviewing patient was greater than 30 minutes Resident Activity Tracking Resident Involvement: Resident Care Provided Care Provided: Adult Hospital Medicine
== END 2022-05-07 14:35 | disposition home or self-care (01) | DRG 192 ==
LOC: ED 23:33 → 2N 05-05 02:33 → SUATTDRO 05-05 02:33 → 2N 05-05 03:46
DX: Z79.01 Long term (current) use of anticoagulants; Z20.822 Contact with and (suspected) exposure to COVID-19; R13.10 Dysphagia, unspecified; J44.1 Chronic obstructive pulmonary disease with (acute) exacerbation; F17.290 Nicotine dependence, other tobacco product, uncomplicated; Z86.711 Personal history of pulmonary embolism; Z79.899 Other long term (current) drug therapy